=== PATIENT | female | born 1980 | race Asian ===

== ENCOUNTER → 2021-04-11 16:16 | Outpatient (BNVA) | payer BC, SELFPAY | PROVIDERS: Visit Provider Obstetrics & Gynecology | DX: N92.0 Excessive and frequent menstruation with regular cycle (principal); N92.1 Excessive and frequent menstruation with irregular cycle | CPT/HCPCS: 83001; 84146; 84443; 84702; 85025 ==

== ENCOUNTER → 2021-05-12 12:11 | Outpatient (BNVA) | payer BC, SELFPAY | PROVIDERS: PCP Obstetrics & Gynecology; Visit Provider Obstetrics & Gynecology | DX: Z20.822 Contact with and (suspected) exposure to COVID-19 (principal) | CPT/HCPCS: 87635 ==

== ENCOUNTER 2021-05-17 17:28 | Observation (INO) | payer BC, SELFPAY ==
[2021-05-16 08:59] VITALS: BMI 26.6
--- NOTE | 2021-05-16 09:25 | ANES.PREANE2 ---
Pre-Anesthetic Assessment Pre-Anesthetic Assessment: Height/Weight: Height 1.52 m Weight 62 kg Preop Diagnosis: Chronic pelvic pain, menorrhagia Proposed Procedure: Operation Date: 05/17/21 12:50 Proposed Procedures p Total Vaginal Hysterectomy 27410/n92.1/r10.2(Not Applicable) - Holland Carlin MD s Salpingo-Oophorectomy (Vaginal)(Not Applicable) - Holland Carlin MD Familial anesthetic complications: None Was Beta Issac taken within 24 hours: N/A Was Clonidine taken within 24 hours: N/A Social: Social History: No alcohol and No tobacco Exam: Pre-Anes Outpt Exam: alert, oriented x 3, clear to auscultation bilaterally and regular rate & rhythm Airway: Cervical ROM: WNL MP: 2 Dentition: Full CV/HEM: CV/HEM: Anemia Anesthetic Plan: ASA status: 2 Anesthesia: General Risk of > 500 ml blood loss (7ml/kg in children): No PFSH Anesthesia PFSH: Family History Mother Diabetes Hyperlipidemia Hypertension Stroke Brother Thyroid condition Sister Thyroid condition Father Heart disease Denies family history of Colon cancer Ovarian cancer Clotting disorder Breast cancer Anesthesia complication Bleeding disorder Uterine cancer Female Reproductive History: Date of last menstrual period: 05/13/21 Data Anesthesia Cardiac Studies: No Data to Display
[2021-05-16 09:34] LABS: Basophils % 0.8 %; Eosinophils # 0.2 10^3/uL (0.0-0.8); Eosinophils % 4.3 %; Hematocrit 33.5 % (37.0-47.0); Hemoglobin 9.4 g/dL (11.5-15.3); Lymphocytes # 0.7 10^3/uL (0.8-4.8); Mean Corpuscular HGB Conc 28.1 g/dL (30.0-36.0); Mean Corpuscular Hemoglobin 19.5 pg (28.0-34.0); Mean Corpuscular Volume 69.6 fl (81-99); Mean Platelet Volume 8.8 fL (7.4-10.4); Monocytes # 0.6 10^3/uL (0.2-0.9); Monocytes % 11.4 %; Neutrophils # 3.57 10^3/uL (1.8-7.7); Neutrophils % 70.1 %; Nucleated Red Blood Cells % 0 %; Platelet Count 279 10^3/cmm (130-400); Red Blood Count 4.81 10^6/uL (4.1-5.3); Red Cell Distribution Width 17.9 % (12.1-15.1); White Blood Count 5.1 10^3/uL (4.0-10.0)
[2021-05-16 09:39] LABS: OR HCG Qualitative Urine Negative (Negative)
[2021-05-16 10:09] LABS: Alanine Aminotransferase 26 U/L (0-33); Alkaline Phosphatase 62 IU/L (35-105); Anion Gap 17.9 (5-19); Aspartate Amino Transferase 17 U/L (0-32); Blood Urea Nitrogen 8 mg/dL (6-20); Carbon Dioxide 23 mmol/L (22-29); Chloride 99 mmol/L (98-107); Globulin 2.3 g/dL (1.3-4.6); Glomerular Filtration Rate 111.3 mL/min (90-130); Glucose 89 mg/dL (65-115); Osmolality Calculated 280 mOsm/kg (285-295); Potassium 3.9 mmol/L (3.5-5.1); Sodium 136 mmol/L (136-145); Total Bilirubin 0.2 mg/dL (0.15-1.2); Total Protein 7.3 g/dL (6.6-8.7)
[2021-05-16 10:14] LABS: Add Urine Microscopic? YES; Bacteria Urine 2+ /hpf; Bilirubin Urine Neg (Negative); Blood Urine Neg (Negative); Glucose Urine UA Norm (Normal); Ketones Urine Negative (Negative); Leukocyte Esterase Urine Negative (Negative); Mucus Urine 2+ /hpf; Nitrate Urine Negative (Negative); Protein Urine Neg (Negative); Specific Gravity, Urine 1.025 (1.005-1.030); Squamous Epithelial Cell Urine 40-55 /hpf (0-5); Urine Appearance SL Hazy (CLEAR); Urine Color Yellow (Yellow); Urobilinogen Urine Norm (Negative); pH Urine 5 (5-7)
[2021-05-16 10:15] LABS: Add Urine Culture? No
[2021-05-17] VITALS (20 sets, daily range): BP systolic 82–121; BP diastolic 41–81; PULSE 16–112; RESP 14–18; TEMP 36.1–37.2; O2SAT 93–100; BMI 26.5
[2021-05-17] MEDS: scopolamine 1.5 Patch 1 PATCH TRANSDERMA (13:03)
--- NOTE | 2021-05-17 13:05 | P.ANESUD_ITS ---
Pre-Anesthetic Update Pre-Anesthetic Assessment: Date of Surgery/Procedure: 05/17/21 Preop Tanya gnosis: Chronic pelvic pain, menorrhagia Proposed Procedure: Operation Date: 05/17/21 12:50 Proposed Procedures p Total Vaginal Hysterectomy 13185/n92.1/r10.2(Not Applicable) - Holland Carlin MD s Salpingo-Oophorectomy (Vaginal)(Not Applicable) - Holland Carlin MD Last Intake: Intake Last Liquid Date 05/17/21 Last Liquid Time 07:00 Last Solid Date 05/16/21 Last Solid Time 00:00 Labs Last 48hrs: Short CBC 05/16/21 Range/Units 09:10 WBC 5.1 (4.0-10.0) 10^3/ uL Hgb 9.4 L (11.5-15.3) g/dL Hct 33.5 L (37.0-47.0) % MCV 69.6 L (81-99) fl Plt Count 279 (130-400) 10^3/c mm Neut % (Auto) 70.1 % Neut # (Auto) 3.57 (1.8-7.7) 10^3/u L BMP 05/16/21 09:10 Sodium 136 Potassium 3.9 Chloride 99 Carbon Dioxide 23 BUN 8 Creatinine 0.6 Glucose 89 Calcium 9.0 Liver Function 05/16/21 Range/Units 09:10 Total Bilirubin 0.2 (0.15-1.2) mg/dL AST 17 (0-32) U/L ALT 26 (0-33) U/L Alkaline Phosphata se 62 (35-105) IU/L Albumin 5.0 (3.5-5.2) g/dL Urine 05/16/21 Range/Units 09:30 Urine Color Yellow (Yellow) Urine Appearance Sl hazy (CLEAR) Urine pH 5 (5-7) Ur Specific Gravit y 1.025 (1.005-1.030) Urine Protein Neg (Negative) Urine Glucose (UA) Norm (Normal) Urine Ketones Negative (Negative) Urine Nitrate Negative (Negative) Urine Bilirubin Neg (Negative) Ur Leukocyte Marya ase Negative (Negative) Urine RBC None (0-2) /hpf Urine WBC None (0-5) /hpf Blood Bank 05/16/21 09:19 Blood Type B Positive Rho(D) Type Positive Antibody Screen Negative Vitals: Temperature 98.3 F 05/17/21 12:35 Temperature Source Temporal Artery S can 05/17/21 12:35 Pulse Rate 98 05/17/21 12:35 Respiratory Rate 16 05/17/21 12:35 Blood Pressure 112/80 05/17/21 12:35 Blood Pressure Nighat n 90 05/17/21 12:35 Pulse Oximetry 100 05/17/21 12:35 Oxygen Delivery Me thod 05/17/21 12:35 Cardiac Studies: No Data to Display
--- NOTE | 2021-05-17 13:05 | W.PM.OPSUD ---
Surgery/Procedure H&P Update DATE OF PROCEDURE: May 17, 2021 DATE H&P PERFORMED: 05/15/21 H&P UPDATE INFORMATION: I have reviewed H&P completed within last 30 days, I have examined patient prior to procedure and No changes to prior documentation PREOP DIAGNOSIS: Chronic pelvic pain, menorrhagia PLANNED PROCEDURE: Operation Date: 05/17/21 12:50 Proposed Procedures p Total Vaginal Hysterectomy 99383/n92.1/r10.2(Not Applicable) - Holland Carlin MD s Salpingo-Oophorectomy (Vaginal)(Not Applicable) - Holland Carlin MD
[2021-05-17] MEDS: sodium chloride 0.9% 500 ML IV (13:09)
[2021-05-17] MEDS: ceFOXitin 2,000 MG in sodium chloride 0.9% (plus) 50 ML 100 MG IV (13:16)
[2021-05-17] MEDS: estrogens Conjugated Cream 30 gm 1 APPLIC VAGINAL (15:06)
--- NOTE | 2021-05-17 15:23 | P.OP_ITS ---
Operative Report Date of procedure: May 17, 2021 Pre-op Diagnosis: Chronic pelvic pain, menorrhagia, Endometriosis Post-op diagnosis: same Post-op Findings: Extensive cul-de-sac adhesions Procedure Done: Total vaginal hysterectomy Specimens removed/disposition: Uterus Surgeon: Holland Carlin MD Anesthesia: General Estimated blood loss (mL): 500 IV fluids (mL): 1,800 Urine output (mL): 300 Complications: Bleeding, adhesions Condition: stable Disposition: PACU Procedure: After informed consent and risks, benefits, indications and alternatives reviewed with the patient was taken to the operating room. The patient was placed in dorsal lithotomy position prepped, and draped in the usual sterile fashion. The pre-procedure timeout verifying the correct patient, procedure, site and side, could not requirements was performed and acknowledge by the OR team. A Rubio catheter was placed. A Bookwalter vaginal retractor was placed into the vagina in usual manner visualize the cervix. Cervix was grasped with a single tooth tenaculum and circumferentially infiltrated with 2% Xylocaine with epinephrine]. Then cervix was circumferentially incised with bovie and the bladder was dissected off the pubovesical cervical fascia anteriorly with a sponge stick and Metzenbaum scissors. The anterior peritoneal reflection was identified and the anterior cul-de-sac was entered sharply with Metzenbaum scissors. The same procedure was performed posteriorly and a posterior colpotomy was made through the posterior cul-de-sac space with great difficulty due to extensive adhesions and finnaly after careful lysis of adhesions the posterior blade of the Bookwalter vaginal retractor was advanced posteriorly into the cul-de-sac. At this time, the left and right uterosacral ligaments were isolated and ligated with 0 Vicryl. The Enseal device was placed over the uterosacral ligaments on either side and was then used in a serial fashion up through the cardinal ligaments bilaterally cross-clamped, cut, and sealed with the Enseal device. Finally, the uterine arteries were cross-clamped, cut, sealed and ligated with the Enseal device. Hemostasis was assured. The broad ligaments were then serially clamped, sealed and cut with the Enseal device on both sides. Excellent hemostasis was visualized. Both cornua were clamped, sealed and cut with the Enseal device after care disection due to adhesions. Then the pedicles were then suture liga leny with excellent hemostasis. The uterus was excised and submitted for pathologic evaluation. Due to adhesions the ovaries could not be identified and planned oophorectomy was postpone for safety and to avoid further bleeding. The peritoneum was then closed in a pursestring fashion with 0 Vicryl suture. The vaginal cuff angles were closed with [id number] #0 Vicryl suture on both sides and transfixed with the ipsilateral cardinal and uterosacral ligaments. The remainder of the vaginal cuff was closed with #0 Vicryl in a running locked fashion. At this time, instruments were removed from the vagina at hemostasis assured. Then the Rubio catheter was removed and cystoscope was inserted. The bladder was filled with sterile water. Complete evaluation of the bladder mucosa was perfo rmed noting no lacerations, dimpling, tears, bleeding of the mucosa or muscular layers. Both ureteral orifices were identified. Prompt excretion of urine from both ureteral orifices was noted. Cystoscope was withdrawn. Rubio catheter was then placed yielding clear neris urine. A vaginal packing with Premarin cream was placed and the patient was taken out of dorsal lithotomy position and awake brisa from the general anesthesia. The patient tolerated the procedure well and was taken to the PACU recovery room in a stable condition. Sponge, lap, needle and instruments counts were correct x3.
--- NOTE | 2021-05-17 15:37 | ANE.PACU2 ---
Inpatient post-anesthesia follow up: Airway intact: Yes Vital signs: Temperature 98.3 F Pulse Rate 98 Respiratory Rate 16 Blood Pressure 112/80 Pulse Oximetry 100 Oxygen Delivery Me thod Room Air Oxygen Flow Rate Fraction of Inspir ed Oxygen Hydration adequate: Yes Nausea and vomiting: No Pain level: 2 Mental status: Baseline
[2021-05-17] MEDS: fentaNYL 50 mcg/mL INJ 2mL IVP (15:40)
[2021-05-17 17:27] LABS: Glucose Point of Care 115 mg/dL (70-110)
[2021-05-17] MEDS: docusate sodium 100 mg Capsule PO (17:57)
[2021-05-17] MEDS: ketorolac 30 mg/mL INJ IVP (17:57)
[2021-05-17] MEDS: dextrose 5%-lactated ringers 1,000 ML 125 ML IV (17:58)
[2021-05-17 18:01] LABS: Basophils % 0.2 %; Eosinophils % 0.2 %; Lymphocytes # 0.5 10^3/uL (0.8-4.8); Lymphocytes % 9.2 %; Mean Corpuscular Hemoglobin 19.2 pg (28.0-34.0); Mean Corpuscular Volume 71.2 fl (81-99); Mean Platelet Volume 9.1 fL (7.4-10.4); Monocytes # 0.3 10^3/uL (0.2-0.9); Monocytes % 5.2 %; Neutrophils # 4.78 10^3/uL (1.8-7.7); Neutrophils % 84.8 %; Nucleated Red Blood Cells % 0 %; Platelet Count 196 10^3/cmm (130-400); Red Blood Count 3.23 10^6/uL (4.1-5.3); Red Cell Distribution Width 18.1 % (12.1-15.1); White Blood Count 5.6 10^3/uL (4.0-10.0)
[2021-05-17 18:16] LABS: Hemoglobin 6.2 g/dL (11.5-15.3)
[2021-05-17] MEDS: HYDROcodone-acetaminophen 5-325 mg Tablet PO (20:56)
[2021-05-18] VITALS (11 sets, daily range): BP systolic 70–89; BP diastolic 38–55; PULSE 73–97; RESP 16–20; TEMP 36.7–37.2; O2SAT 95–98
[2021-05-18] MEDS: ketorolac 30 mg/mL INJ IVP ×2 (00:42→05:09)
--- NOTE | 2021-05-18 02:28 | PC.NURSE ---
1945 awake in bed. golf ball size dried area to sheet from vaginal bleeding. No acute bleeding noted. Rubio patent urine changing from blue dye color to clear yellow.
--- NOTE | 2021-05-18 04:21 | PC.NURSE ---
1950 Lab calls to report PRBC ready for tow picker.
--- NOTE | 2021-05-18 04:22 | PC.NURSE ---
2015 Starting first bag of 2 units of PRBC. See TAR for further info.
--- NOTE | 2021-05-18 04:23 | PC.NURSE ---
2044 Dr Carlin calls to [facility] on pt status. Reported low BPs, pt asymptomatic. Will continued to monitor. No new orders.
--- NOTE | 2021-05-18 04:26 | PC.NURSE ---
2100 Bridgett given to pt per her request. A/o x 4. No distress. Scant amt of pink bleeding noted to vaginal packing. Ruboi in place draining yellow urine. Passing flatus. Bowel sounds noted x 4. Instructed pt to turn cough deep breathe. Voices understanding.
--- NOTE | 2021-05-18 04:28 | PC.NURSE ---
2200 BP continues to be low. Pt reports she has been running low since she has been low on blood the past few weeks. She reports mild dizziness. No other symptoms.
--- NOTE | 2021-05-18 04:29 | PC.NURSE ---
2320 First unit PRBC completed. No reaction noted. Lungs CTA. Tolerated well. Sat up in bed. Due to low BP, did not have pt move to chair as activity states.
--- NOTE | 2021-05-18 04:30 | PC.NURSE ---
0020 2nd unit PRBC started. See TAR for further info.
--- NOTE | 2021-05-18 04:31 | PC.NURSE ---
0045 Pt given a cup of chicken broth and kenzie as requested. Tolerates well. No n/v. Fole draining clear yellow urine. No vaginal bleeding noted. Lungs CTA.
--- NOTE | 2021-05-18 04:32 | PC.NURSE ---
0200 Easily awakens for vs. BP cont to be 80s systolic. No symptoms. Lungs CTA. Bowels sounds x 4 quad. No vaginal bleeding.
--- NOTE | 2021-05-18 04:33 | PC.NURSE ---
0315 2nd PRBC completed. Tolerates well. No s/s of reaction. Lungs CTA. Denies requests.
--- NOTE | 2021-05-18 05:24 | PC.NURSE ---
Pt sleeping. Easily awakens. BP 86/44 manually, HR 74. No distress. Out put 150cc clear yellow urine. Passes flatus.
[2021-05-18 05:46] LABS: Basophils % 0.1 %; Hematocrit 27.9 % (37.0-47.0); Hemoglobin 8.4 g/dL (11.5-15.3); Lymphocytes # 1.3 10^3/uL (0.8-4.8); Lymphocytes % 15.2 %; Mean Corpuscular HGB Conc 30.1 g/dL (30.0-36.0); Mean Corpuscular Hemoglobin 22.9 pg (28.0-34.0); Mean Platelet Volume 9.2 fL (7.4-10.4); Monocytes # 0.8 10^3/uL (0.2-0.9); Monocytes % 9.3 %; Neutrophils # 6.53 10^3/uL (1.8-7.7); Neutrophils % 75.1 %; Nucleated Red Blood Cells % 0 %; Platelet Count 161 10^3/cmm (130-400); Red Blood Count 3.67 10^6/uL (4.1-5.3); Red Cell Distribution Width 20.5 % (12.1-15.1); White Blood Count 8.7 10^3/uL (4.0-10.0)
[2021-05-18 06:54] LABS: Glucose Point of Care 130 mg/dL (70-110)
--- NOTE | 2021-05-18 08:07 | PC.NURSE ---
on rounds this morning patients blood pressure was 70/[address] Carlin notified who stated to get orthostatic blood pressure and walk patient. laying bp was 76/42, sitting 81/53, standing 89/56. patient walked 75ft in the hallway then back to her room. blood pressure once back in bed was 87/57. Dr. Carlin stated he would be up soon to see patient. no further orders.
[2021-05-18] MEDS: dextrose 5%-lactated ringers 1,000 ML 125 ML IV ×2 (09:10→22:00)
[2021-05-18] MEDS: docusate sodium 100 mg Capsule PO (09:11)
[2021-05-18] MEDS: HYDROcodone-acetaminophen 5-325 mg Tablet PO ×2 (09:11→19:49)
--- NOTE | 2021-05-18 09:23 | PC.NURSE ---
Vaginal packing removed at 0900. Patient tolerated well. Rubio removed at this time as well. Patient instructed to get up and walk when her pain medication takes effect.
[2021-05-18 12:31] LABS: Hematocrit 26.7 % (37.0-47.0); Hemoglobin 8.2 g/dL (11.5-15.3)
[2021-05-18] MEDS: ibuprofen 800 mg tablet PO ×2 (15:29→22:56)
--- NOTE | 2021-05-18 17:12 | PM.PN ---
Subjective Subjective: Interval history: 41 years old postoperative day 1 status post total vaginal hysterectomy. Refers some pain Vitals/I&O/Wt Last Vital Signs Temp 98.5 F 05/18/21 15:26 Pulse 92 05/18/21 15:26 Resp 16 05/18/21 15:26 BP 78/49 05/18/21 15:26 Pulse Ox 98 05/18/21 15:26 05/18/21 05/18/21 05/18/21 06:59 14:59 22:59 Intake Total 1890 / 2440 360 / 360 Output Total 475 / 1225 100 / 100 Balance 1415 / 1215 260 / 260 Weight last 48 hrs Weight 61.689 kg Physical Exam Narrative: EXAM NARRATIVE: GA: Alert and oriented ?3. HEENT: WNL. Heart: Regular rate and rhythm. Lungs: Clear to auscultation bilaterally. Abdomen: Bowel sounds present, nontender, minimal tenderness, incision clean and dry, no redness, pain or edema. ADMINISTRATIVE VOLUNTEER: No bleeding. Extremities: No edema, no cyanosis, no calves pain. Urinary Catheter Management^: Rubio: Cath Placed During This Visit: yes, but has since been removed by the nurse Reason for Continuing Indwelling Catheter: Decision to DC Catheter Urinary Catheter Date of Insertion: 05/17/21 Urinary Catheter Time of Insertion: 12:42 Date Urinary Catheter Removed: 05/18/21 Time Urinary Catheter Discontinued: 08:30 Data : 05/18/21 12:15 05/16/21 09:10 A&P Assessment and plan (1) Status post vaginal hysterectomy: Mrs. Soriano 41-year-old female status post vaginal hysterectomy complicated by bleeding and adhesions. She is postoperative day 1, afebrile and hemodynamically stable. She was given total units of blood postoperatively. tolerating diet well. Pain under control. Ambulating without difficulty. Patient was counseled regarding ovaries could not be removed due to extensive adhesions and bleeding. We will continue postop observation for an additional 24 hours. Status: Acute Attestations Medical Necessity Statement*: In my professional opinion per admitting diagnosis Coding Level of Care Code Acute Painter Bottom for Deangelo Quintero Diagnoses Status post vaginal hysterectomy Z90.710
[2021-05-18] MEDS: simethicone 80 mg Chew PO (20:04)
[2021-05-18 22:00] LABS: Glucose Point of Care 121 mg/dL (70-110)
[2021-05-19] VITALS: BP 101/66; PULSE 105; RESP 18; TEMP 36.8; O2SAT 91
[2021-05-19] MEDS: HYDROcodone-acetaminophen 5-325 mg Tablet PO (03:35)
[2021-05-19 04:04] VITALS: BP 88/54; PULSE 85; RESP 16; TEMP 37.4; O2SAT 95
[2021-05-19] MEDS: dextrose 5%-lactated ringers 1,000 ML 125 ML IV ×2 (05:38→13:18)
[2021-05-19 06:48] LABS: Glucose Point of Care 111 mg/dL (70-110)
[2021-05-19 07:23] VITALS: BP 100/53; PULSE 98; RESP 16; TEMP 37.1; O2SAT 95
[2021-05-19] MEDS: ibuprofen 800 mg tablet PO ×2 (11:09→15:45)
[2021-05-19] MEDS: docusate sodium 100 mg Capsule PO (11:09)
[2021-05-19 11:45] LABS: Hematocrit 30.6 % (37.0-47.0); Hemoglobin 9.2 g/dL (11.5-15.3)
[2021-05-19 11:47] VITALS: BP 105/47; PULSE 105; RESP 16; TEMP 36.7; O2SAT 97
--- NOTE | 2021-05-19 13:28 | PM.PN ---
Subjective Subjective: Interval history: Mrs. Hightower 41-year-old female status post total vaginal hysterectomy postoperative day 2. Refers having some discomfort. Vitals/I&O/Wt Last Vital Signs Temp 98.1 F 05/19/21 11:47 Pulse 105 H 05/19/21 11:47 Resp 16 05/19/21 11:47 BP 105/47 05/19/21 11:47 Pulse Ox 97 05/19/21 11:47 05/18/21 05/19/21 05/19/21 22:59 06:59 14:59 Intake Total 1720 / 2080 1074.167 / 3154.167 1078.333 / 1078.333 Output Total 250 / 350 Balance 1470 / 1730 1074.167 / 2804.167 1078.333 / 1078.333 Weight last 48 hrs Weight 61.689 kg Physical Exam Narrative: EXAM NARRATIVE: GA: Alert and oriented ?3. HEENT: WNL. Heart: Regular rate and rhythm. Lungs: Clear to auscultation bilaterally. Abdomen: Bowel sounds present, minimal tenderness FREELANCE TRANSLATOR: No bleeding. Extremities: No edema, no cyanosis, no calves pain. Urinary Catheter Management^: Rubio: Cath Placed During This Visit: yes, but has since been removed by the nurse Reason for Continuing Indwelling Catheter: Decision to DC Catheter Urinary Catheter Date of Insertion: 05/17/21 Urinary Catheter Time of Insertion: 12:42 Date Urinary Catheter Removed: 05/18/21 Time Urinary Catheter Discontinued: 08:30 Data : 05/19/21 11:37 05/16/21 09:10 A&P Assessment and plan (1) Status post vaginal hysterectomy: Mrs. Soriano 41-year-old female status post vaginal hysterectomy complicated by bleeding and adhesions. She is postoperative day 2, afebrile and hemodynamically stable. She received 2 units of blood on postoperatively. Referred tolerating diet well. Refers passing flatus and had a bowel movement this morning. Verbal order for H&H this morning was not carried out. Ordered stat H&H. Hemoglobin hematocrit stable. Status: Acute Attestations Medical Necessity Statement*: In my professional opinion per admitting diagnosis. Coding Level of Care Code Acute Developmental Specialist for Deangelo Quintero Diagnoses Status post vaginal hysterectomy Z90.710
--- NOTE | 2021-05-19 14:03 | PC.CHAP ---
Pastoral Care Encounter/Spiritual Assessment Type of Contact [] Declined chief school finance officer visit [] Patient/Family/Request visit [] Outpatient visit [] Follow-up visit [] Physician referral [] Code/Alert [xx] Routine visit [] Staff referral [] Actively dying [] Patient sleeping [] Family support [] [] Out of room [] Palliative care [] [] Receiving care in room [] Pre-surgical visit [] Trauma [] Long length of stay [] ICU visit [] Other: Relational/Emotional Strength [xx] Patient feels connected with others/family/visitors/staff [] Distress [] Loneliness/isolation [] Abandonment Spirituality of Patient [xx] Person of Ольга [] Attends Latter Day of their [place]льга [xx] Believes in Prayer [] Reads Bible or Christianity materials [] There are Spiritual issues to be addressed Oven Attendant Interventions [xx] Prayer [xx] Active listening [xx] Non-anxious presence [] Spiritual/emotional support [] Crisis/trauma care [] Spiritual counseling [] Bereavement support [] Provided bereavement packet [xx] Provided Bible/devotional materials [] Provided toy/stuffed animal, coloring book to patient or family member [] Provided Communion [] Anointing/Levering [] Salvation [xx] Completed spiritual assessment [] Other: Impact on Illness or Injury [] Angry [] Fearful [] Anxious [] Often cries [] Exhaustion [] Unable to work [] Unable to attend evangelical [] Unable to walk/stand [] Unable to read [] Unable to drive [xx] Unable to eat/drink [] Unable to sleep [] Unable to be with family [] Patient intubated [] Other: Summary Patient is stilll nauseated and not feeling well. She wanted prayer. She stated her spouse should be coming up to visit today but she doesn't feel like talking to him. She wants him to come, though. Time spent with patient 5 minutes
[2021-05-19 16:00] VITALS: BP 101/71; PULSE 88; RESP 18; TEMP 36.8; O2SAT 94
--- NOTE | 2021-05-19 17:39 | P.DS_ITS ---
Discharge Providers MOLD YARD CRANE OPERATOR Date of Admission: 05/17/21 17:28 Date of Discharge: 05/19/21 Attending Provider at Admission: Holland Carlin MD Attending Provider at Discharge: Holland Cariln MD Primary Care Provider: Holland Carlin MD Diagnoses at Discharge Discharge Diagnosis (1) Status post vaginal hysterectomy: Status: Acute Reason for Visit Reason for Visit: menorrhagia, pelvic pain n92.1/r10.2 Hospital Course Hospital Course Mrs. Greer 41-year-old female with a history of chronic pelvic pain, dysmenorrhea and dyspareunia previously diagnosed with endometriosis. Admitted for a schedule total vaginal hysterectomy. The total vaginal hysterectomy was performed complicated by complexity due to adhesions and bleeding. Postoperatively if she was transfused 2 units of packed red blood cells. She is postoperative day 2 afebrile and hemodynamically stable. Tolerating diet well. Ambulating without difficulty. Passing flatus and had a bowel movement. Physical Exam Narrative: EXAM NARRATIVE: GA: Alert and oriented ?3. HEENT: WNL. Heart: Regular rate and rhythm. Lungs: Clear to auscultation bilaterally. Abdomen: Bowel sounds present, minimal tenderness. BODY COVERER: No bleeding. Extremities: No edema, no cyanosis, no calves pain. Urinary Catheter Management^: Rubio: Cath Placed During This Visit: yes, but has since been removed by the nurse Reason for Continuing Indwelling Catheter: Decision to DC Catheter Urinary Catheter Date of Insertion: 05/17/21 Urinary Catheter Time of Insertion: 12:42 Date Urinary Catheter Removed: 05/18/21 Time Urinary Catheter Discontinued: 08:30 History History History 0 Term 0 Miscarriages/Ectopic Living Children Discharge Data Data Completed and Pending: Pending at discharge Category Date Time Status Hemoglobin and He matocrit AM LABS Lab 05/20/21 04:00 Ordered Pathology: Surgic al [PTH] Routine Pth 05/17/21 15:29 Received Labs from last 24 hours 05/19/21 05/19/21 05/18/21 11:37 06:24 21:19 Hgb 9.2 L Hct 30.6 L POC Glucose 111 H 121 H Vitals: Last Vital Signs Temp 98.3 F 05/19/21 16:00 Pulse 88 05/19/21 16:00 Resp 18 05/19/21 16:00 BP 101/71 05/19/21 16:00 Pulse Ox 94 05/19/21 16:00 Discharge Plan Discharge Patient Disposition: Home Condition: Stable Prescriptions: New acetaminophen 325 mg capsule 325 mg PO Q4H PRN (Reason: fever or postoperative pain) Qty: 60 RF: 0 ibuprofen 800 mg tablet 800 mg PO TID PRN (Reason: pain) Qty: 60 RF: 0 hydrocodone-acetaminophen 5-325 mg tablet 1 tab PO Q4H PRN (Reason: pain) Qty: 30 RF: 0 Iron (ferrous sulfate) 325 mg (65 mg iron) tablet 325 mg PO BID Qty: 30 RF: 0 Colace 100 mg capsule 100 mg PO BID Qty: 30 RF: 0 Discharge Orders: Discharge Order (Routine); Ordered 05/19/21 Ordered By: Holland Carlin Referrals: Holland Carlin MD [Primary Care Provider] - 2 weeks Discharge Diet: Soft Mechanical Discharge Activity: Limit activity as instructed Patient Instructions: Endometriosis (GEN), Pelvic Pain in Women (GEN), Hysterectomy (GEN), Vaginal Hysterectomy (DC), Opioid Safety Activity Restrictions/Additional Instructions: 1. Please call [facility] on next working day to make your post-operative appointment in 2 weeks. 2. Please stay home until you come back to the clinic on first post-operative check up. 3. Please follow instructions on your medications CAREFULLY. 4. If you have abdominal incision, do not cover it unless dressing is necessary because of drainage. OK to shower, but avoid bath. Leave steri-strips until they fall off. If they are still on one week after surgery, you may remove them. 5. If you had vaginal surgery or vaginal repair, Dr. Carlin may instruct you to take SITZ bath. 6. Yellow, blood tinged odorous vaginal discharge is usually normal after hysterectomy or vaginal surgeries. 7. No sexual intercourse, tampons, or douches until you are completely released from the post-operative care. 8. Avoid constipation by eating right and maybe using some Metamucil or Milk of Magnesia. 9. All prescription refills are given during the working hours. Please do no wait till it runs out. Call the clinic at [phone] before your medication runs out. The clinic will get in touch with your doctor to prescribe medications if necessary. 10. Please remain within 40 mile radius from our hospital because emergencies do happen now and then during the post-operative period. 11. If you have stairs at home, take one step at a time slowly and minimize the number of trips. It helps to stay in one floor for the next few days. No lifting except what you can lift by one hand until you are released from the post-operative care. 12. Driving is discouraged until you are well healed. It may be 3-4 weeks before you feel strong enough to drive. You should be able to turn and look through the rear window without pain and you should be able to push the brake pedal very hard without pain before you drive. No fast rules, but SAFETY should be your primary concern. DO NOT drive if you are on sedating medications such as narcotics. 13. Call the clinic (during working hours) to make urgent appointment or go to the Emergency room, if any of the following occurs: i. Vaginal bleeding becomes heavy, more than a period. ii. Incision becomes red and sore, or drains pus. iii. Your temperature is over 100.4 or you have chill. iv. IV site becomes red and swollen (a little ``knot?? is usually OK) v. Persistent nausea and vomiting vi. Persistent constipation or diarrhea vii. Rash or allergic reaction to medications. Discharge Attestations MOLD YARD CRANE OPERATOR Time Spent in Discharge Care*: greater than 30 min Coding Level of Care Code Acute Rn Hyperbaric for Deangelo Quintero Diagnoses Status post vaginal hysterectomy Z90.710
--- NOTE | 2021-05-19 18:22 | PC.NURSE ---
DISCHARGE PAPERWORK GONE OVER WITH PT. ALL QUESTIONS ANSWERED. IV REMOVED. CATHETER TIP INTACT. PT TOLERATED WELL. PT SAFELY WHEELED OUT BY THIS NURSE .
[2021-05-19 18:54] VITALS: BP 101/71; PULSE 88; RESP 18; TEMP 36.8; O2SAT 94
== END 2021-05-19 18:55 | disposition home or self-care (01) ==
LOC: MEDSURG 05-18 10:16
PROVIDERS: Admitting Provider Obstetrics & Gynecology; PCP Obstetrics & Gynecology; Visit Provider Obstetrics & Gynecology
PROC: (CPT 58260; principal; 2021-05-17 12:40)
DX: N92.0 Excessive and frequent menstruation with regular cycle (principal); G89.29 Other chronic pain; R10.2 Pelvic and perineal pain; N80.9 Endometriosis, unspecified; K66.0 Peritoneal adhesions (postprocedural) (postinfection); Z82.49 Family history of ischemic heart disease and other diseases of the circulatory system; Z83.3 Family history of diabetes mellitus; Z82.3 Family history of stroke
CPT/HCPCS: 58260; 36415; 36416; 36430; 80053; 81001; 81025; 82962; 84703; 85014; 85018; 85025; 86850; 86900; 86920; 88307; 96365; G0378; J0694; J1100; J1170; J1200; J1885; J2370; J2405; J2704; J3010; J3490; J7040; P9016; P9041

== ENCOUNTER 2022-01-17 14:16 | Observation (INO) | payer BC, SELFPAY ==
[2022-01-15 13:07] VITALS: BMI 27.3
--- NOTE | 2022-01-15 13:35 | P.ANESASSM_ITS ---
Pre-Anesthetic Assessment Height/Weight: Height 1.52 m Weight 63.503 kg Preop Diagnosis: Endometriosis adhesions Operation Date: 01/17/22 10:05 Proposed Procedures p Laparoscopic bilateral Oophorectomy 45321,N80.9,R10.2(Bilateral) - Holland Carlin MD Familial anesthetic complications: None Was Beta Issac taken within 24 hours: N/A Was Clonidine taken within 24 hours: N/A Social No alcohol and No tobacco Exam alert, oriented x 3, clear to auscultation bilaterally and regular rate & rhythm Airway Mallampati: Class II Dentition: full Musc/skel endometriosis Anesthetic Plan ASA status: 2 Anesthesia: General Risk of > 500 ml blood loss (7ml/kg in children): No Medications/Allergies Home Medications Medication Instructions Recorded Confirmed Last Taken Type No Known Home Medications 01/15/22 01/15/22 Unknown History Allergies Allergy/AdvReac Type Severity Reaction Status Date / Time oxycodone Allergy Severe palpitation Verified 01/15/22 10:00 s [facility] Anesthesia Family History Mother Diabetes Hyperlipidemia Hypertension Stroke Brother Thyroid condition Sister Thyroid condition Father Heart disease Denies family history of Colon cancer Ovarian cancer Clotting disorder Breast cancer Anesthesia complication Bleeding disorder Uterine cancer Social History Smoking and tobacco status: never smoked Female Reproductive History Date of last menstrual period: 05/13/21 Data Anesthesia : 01/15/22 13:18 01/15/22 13:18 Cardiac Studies: No Data to Display
[2022-01-15 13:38] LABS: Basophils % 0.7 %; Eosinophils # 0.2 10^3/uL (0.0-0.8); Eosinophils % 5.1 %; Hematocrit 42.5 % (37.0-47.0); Hemoglobin 14.7 g/dL (11.5-15.3); Lymphocytes # 1.9 10^3/uL (0.8-4.8); Lymphocytes % 43.8 %; Mean Corpuscular HGB Conc 34.6 g/dL (30.0-36.0); Mean Corpuscular Hemoglobin 29.8 pg (28.0-34.0); Mean Corpuscular Volume 86.2 fl (81-99); Mean Platelet Volume 8.6 fL (7.4-10.4); Monocytes # 0.4 10^3/uL (0.2-0.9); Monocytes % 9.1 %; Neutrophils # 1.76 10^3/uL (1.8-7.7); Neutrophils % 41.1 %; Nucleated Red Blood Cells % 0 %; Platelet Count 240 10^3/cmm (130-400); Red Blood Count 4.93 10^6/uL (4.1-5.3); Red Cell Distribution Width 12.4 % (12.1-15.1); White Blood Count 4.3 10^3/uL (4.0-10.0)
[2022-01-15 13:44] LABS: Add Urine Culture? No; Add Urine Microscopic? YES; Bacteria Urine 1+ /hpf; Bilirubin Urine Neg (Negative); Blood Urine 2+ (Negative); Glucose Urine UA Norm (Normal); Ketones Urine 1+ (Negative); Leukocyte Esterase Urine Negative (Negative); Nitrate Urine Negative (Negative); Protein Urine Neg (Negative); RBC Urine 0-4 /hpf (0-2); Urine Appearance Clear (CLEAR); Urine Color Yellow (Yellow); Urobilinogen Urine Norm (Negative); WBC Urine 0-4 /hpf (0-5); pH Urine 5 (5-7)
[2022-01-15 13:58] LABS: Alanine Aminotransferase 33 U/L (0-33); Albumin Level 4.6 g/dL (3.5-5.2); Alkaline Phosphatase 53 U/L (35-105); Anion Gap 15.5 (5-19); Aspartate Amino Transferase 21 U/L (0-32); Blood Urea Nitrogen 12 mg/dL (6-20); Calcium 9.1 mg/dL (8.5-10.5); Carbon Dioxide 25 mmol/L (22-29); Chloride 104 mmol/L (98-107); Globulin 2.5 g/dL (1.3-4.6); Glomerular Filtration Rate 79.9 mL/min (90-130); Glucose 109 mg/dL (65-115); Osmolality Calculated 292 mOsm/kg (285-295); Potassium 3.5 mmol/L (3.5-5.1); Sodium 141 mmol/L (136-145); Total Bilirubin 0.4 mg/dL (0.15-1.2); Total Protein 7.1 g/dL (6.6-8.7)
[2022-01-15 14:10] LABS: HIV 1 & 2 Antibody Non-Reactive (Non-Reactiv); HIV 1 & 2 Antigen Non-Reactive (Non-Reactiv)
[2022-01-17] VITALS (19 sets, daily range): BP systolic 80–110; BP diastolic 44–82; PULSE 70–106; RESP 15–20; TEMP 36.4–36.9; O2SAT 93–100
--- NOTE | 2022-01-17 08:46 | W.PM.OPSUD ---
Surgery/Procedure H&P Update DATE OF PROCEDURE: January 17, 2022 DATE H&P PERFORMED: 01/15/22 H&P UPDATE INFORMATION: I have reviewed H&P completed within last 30 days, I have examined patient prior to procedure and No changes to prior documentation PREOP DIAGNOSIS: Endometriosis adhesions PLANNED PROCEDURE: Operation Date: 01/17/22 09:45 Proposed Procedures p Laparoscopic bilateral Oophorectomy 40477,N80.9,R10.2(Bilateral) - Holland Carlin MD
[2022-01-17] MEDS: scopolamine 1.5 Patch 1 PATCH TRANSDERMA (09:40)
[2022-01-17] MEDS: sodium chloride 0.9% 1,000 ML 30 ML IV (09:41)
--- NOTE | 2022-01-17 09:51 | P.ANESUD_ITS ---
Pre-Anesthetic Update Pre-Anesthetic Assessment: Date of Surgery/Procedure: 01/17/22 Preop Tanya gnosis: Endometriosis adhesions Proposed Procedure: Operation Date: 01/17/22 09:45 Proposed Procedures p Laparoscopic bilateral Oophorectomy 98031,N80.9,R10.2(Bilateral) - Holland Carlin MD Any changes to Pre-Anesthetic Assessment?: No Last Intake: Intake Last Liquid Date 01/16/22 Last Liquid Time 23:30 Last Solid Date 01/16/22 Last Solid Time 23:30 Labs Last 48hrs: Short CBC 01/15/22 Range/Units 13:18 WBC 4.3 (4.0-10.0) 10^3/ uL Hgb 14.7 (11.5-15.3) g/dL Hct 42.5 (37.0-47.0) % MCV 86.2 (81-99) fl Plt Count 240 (130-400) 10^3/c mm Neut % (Auto) 41.1 % Neut # (Auto) 1.76 L (1.8-7.7) 10^3/u L BMP 01/15/22 13:18 Sodium 141 Potassium 3.5 Chloride 104 Carbon Dioxide 25 BUN 12 Creatinine 0.8 Glucose 109 Calcium 9.1 Liver Function 01/15/22 Range/Units 13:18 Total Bilirubin 0.4 (0.15-1.2) mg/dL AST 21 (0-32) U/L ALT 33 (0-33) U/L Alkaline Phosphata se 53 (35-105) U/L Albumin 4.6 (3.5-5.2) g/dL Urine 01/15/22 Range/Units Unknown Urine Color Yellow (Yellow) Urine Appearance Clear (CLEAR) Urine pH 5 (5-7) Ur Specific Gravit y 1.020 (1.005-1.030) Urine Protein Neg (Negative) Urine Glucose (UA) Norm (Normal) Urine Ketones 1+ H (Negative) Urine Nitrate Negative (Negative) Urine Bilirubin Neg (Negative) Ur Leukocyte Marya ase Negative (Negative) Urine RBC 0-4 H (0-2) /hpf Urine WBC 0-4 H (0-5) /hpf Blood Bank 01/15/22 13:18 Blood Type B Positive Rho(D) Type Positive Antibody Screen Negative Vitals: Temperature 97.7 F 01/17/22 08:46 Temperature Source Temporal Artery S can 01/17/22 08:46 Pulse Rate 75 01/17/22 08:46 Pulse Rhythm 01/17/22 08:49 Pulse Strength 3+ Normal 01/17/22 08:49 Respiratory Rate 16 01/17/22 08:46 Blood Pressure 108/77 01/17/22 08:46 Blood Pressure Nighat n 87 01/17/22 08:46 Pulse Oximetry 99 01/17/22 08:46 Oxygen Delivery Me thod 01/17/22 08:49 Exam: Pre-Anes Outpt Exam: alert, oriented x 3, clear to auscultation bilaterally and regular rate & rhythm Cardiac Studies: No Data to Display
--- NOTE | 2022-01-17 10:19 | SUR.PREOP ---
10:15 500 ml NS BOLUS INFUSED.
[2022-01-17] MEDS: ceFAZolin 2,000 MG in sodium chloride 0.9% (plus) 50 ML 100 MG IV (10:56)
--- NOTE | 2022-01-17 13:21 | PM.OP ---
Operative Report Date of procedure: January 17, 2022 Pre-op diagnosis: Preop Diagnosis Endometriosis adhesions Post-op diagnosis: Endometriosis. Multiple pelvic adhesions. Procedure done: Diagnostic laparoscopy. Lysis of adhesions. Laparoscopic bilateral oophorectomy Surgeon: Holland Carlin MD Estimated blood loss (mL): 100 IV fluids (mL): 800 Urine output (mL): 300 Brief History: Mrs. Narvaez 41-year-old female G0, P0 with a longstanding history of chronic pelvic pain diagnosed with severe endometriosis for which she had a vaginal hysterectomy. Treated with Orilissa but the patient continues with pelvic pain and decided to have bilateral oophorectomy. Procedure: After informed consent, the patient was taken to the operating room where general anesthesia was administered. Pre-Procedure Time-Out verifying the correct patient identity, correct procedure verified with consent, correct site and side, correct patient position, availability of correct implants and any special equipment or requirements was performed and acknowledge by the OR team. She was placed in the dorsal lithotomy position and prepped and draped in sterile fashion. The patient was examined under anesthesia and found to have a normal uterus with normal adnexa. A Rubio catheter was placed in the bladder. A sponge stick was placed in the vagina. Then attention was brought to abdomen after changing gloves. The base of the umbilicus was grasped with an Allis clamp and with 2 towel clamp bilaterally tenting up the umbilicus an intraumbilical incision was made with a scalpel. While tenting up on the abdomen, a Verres needle with sleeve was admitted into the intra-abdominal cavity. A saline drop test was performed and noted to be within normal limits. Pneumoperitoneum was attained with 4 liters of carbon dioxide. The gas was seen to flow freely with normal resistance, so the CO2 gas was advanced to a higher setting. The abdomen was insufflated to an adequate distension. Once an adequate distention was reached, the Verres needle was removed. Then a 5 mm Optiview trocar and cannula were inserted under direct visualization without complications. Trocars were removed and the laparoscope was inserted. At this time, a second incision was made 3 cm above the symphysis pubis, and a 5 mm trocar and sleeve were admitted into the abdomen under direct, laparoscopic visualization without complication. A 5 mm blunt probe was advanced through the second trocar sleeve, and light manipulation of ovaries and uterus to assess the pelvis and posterior aspects was performed. The survey showed multiple pelvic adhesions bearing both ovaries. A third incision was made in the left lower quadrant and the third trocar was inserted into the abdomen under direct visualization. Also an incision was made in the right lower quadrant and a 5mm trocar was inserted under direct visualization without complcations . Examination of the pelvis revealed findings of multiple adhesions in pelvis involving boyh ovaries. At this time, both ovaries could not be identified due to adhesions. Attention was turned to the right side and adhesions were carefully lysed with blunt and sharp dissection. The right ovary which was mobilized out of the pelvis grasped with bobcock and the infundibulopelvic ligament was clamped, sealed and cut with the enseal device. At this point, the area was dissected initially using hydrodissection and using blunt dissection. Suction was used to drain fluid in the pelvic area. The right ovary was placed in the anterior cul-de-sac. The ovarian bed was then irrigated and dried. There was slight oozing noted and obtained hemostasis using electrocautery. The pelvis was then irrigated, and once hemostasis was assured, the Endo Catch bag was placed through the 10 mm port and the cyst wall components as well as the right ovary was placed in the Endo Catch bag and removed through the 10 mm incision without difficulty. The same rocedure was performed for the left ovary. At this time, the pelvis was again copiously irrigated and dried. Hemostasis was assured and all instruments were removed under visualization. The umbilical incision was closed using 2 interrupted stitches of 2-0 Vicryl sutures and the skin was closed using interrupted stitches of 4-0 Monocryl suture. Dermabond was placed after closure with 4-0 suture in the lateral ports. All instruments were removed. The sponge stick was removed from the vagina, and excellent hemostasis was noted. The patient tolerated the procedure well, and sponge, lap and needle count were correct times two. The patient taken to the recovery room in good condition.
[2022-01-17] MEDS: fentaNYL 50 mcg/mL INJ 2mL IVP (14:19)
--- NOTE | 2022-01-17 15:11 | ANE.PACU2 ---
Inpatient post-anesthesia follow up: Airway intact: Yes Vital signs: Temperature 97.5 F Pulse Rate 95 Respiratory Rate 15 Blood Pressure 107/67 Pulse Oximetry 94 Oxygen Delivery Me thod Room Air Oxygen Flow Rate 10 Fraction of Inspir ed Oxygen Hydration adequate: Yes Nausea and vomiting: No Pain level: 3 Mental status: Baseline
[2022-01-17] MEDS: ketorolac 30 mg/mL INJ IVP (18:16)
[2022-01-17] MEDS: dextrose 5%-lactated ringers 1,000 ML 125 ML IV (18:16)
--- NOTE | 2022-01-17 20:58 | PC.NURSE ---
Patient was helped up to the chair in her room at this time with standby assistance from this nurse. She tolerated it well although she did report it was very painful. I offered her something for pain but she declined at this time.
[2022-01-18] MEDS: ketorolac 30 mg/mL INJ IVP ×2 (00:03→05:58)
[2022-01-18] MEDS: dextrose 5%-lactated ringers 1,000 ML 125 ML IV (02:18)
[2022-01-18 04:35] VITALS: BP 70/37; PULSE 87; RESP 18; TEMP 36.4; O2SAT 98
--- NOTE | 2022-01-18 04:36 | PC.NURSE ---
Patients blood pressure noted to be low at this time with a reading of 70/37. Her blood pressures have remained soft all day and night so far according to the chart. She is asymtomatic at this time. Her pulse rate is normal at 87. She denies feeling dizzy or light headed at this time. She has lactated ringers with 5% dextrose running at 125ml an hour.
--- NOTE | 2022-01-18 04:38 | PC.NURSE ---
Patients urine output was 50 ml she was instructed to increase her fluids by mouth and she verbalized understanding. She has not drank any water since supper. I gave her fresh water and ice at this time.
--- NOTE | 2022-01-18 04:39 | PC.NURSE ---
Patient was assisted by this nurse to walk two laps around her room at this time. During position change or ambulation she is in a great deal of pain that she rates 6/10. This nurse asked her if she wanted anything for pain at this time and she denies. Her next scheduled toradol is at 0600.
[2022-01-18 05:21] LABS: Mean Corpuscular HGB Conc 33.3 g/dL (30.0-36.0); Mean Corpuscular Volume 90.1 fl (81-99); Mean Platelet Volume 8.7 fL (7.4-10.4); Platelet Count 179 10^3/cmm (130-400); Red Blood Count 3.33 10^6/uL (4.1-5.3); Red Cell Distribution Width 12.8 % (12.1-15.1); White Blood Count 7.9 10^3/uL (4.0-10.0)
--- NOTE | 2022-01-18 06:11 | PC.NURSE ---
Patient was helped by this nurse to get out of bed and ambulate in the rees. She was able to make it approximately 200ft and then requested to turn around. She has a significant amount of pain on her left side when changing positions or ambulating. The further she walked though she seemed to be able to stand up straighter and not be in as much pain and the patient agreed with that. I offered her something additional for pain but she again denied. I asked her if there was a reason she did not want to take any medication for pain and she said that during her time with endometriosis she has taken everything for pain and nothing has helped. I instructed her to increase her fluid intake as well and she verbalized understanding.
[2022-01-18] MEDS: docusate sodium 100 mg Capsule PO (08:45)
[2022-01-18] MEDS: HYDROcodone-acetaminophen 5-325 mg Tablet PO (08:45)
[2022-01-18 08:48] VITALS: BP 95/61; PULSE 82; RESP 16; TEMP 37.2; O2SAT 97
[2022-01-18 10:39] VITALS: TEMP 36.7
--- NOTE | 2022-01-18 10:40 | PC.NURSE ---
Patient ambulated one lap in hallway. Tolerated well, Patient encouraged to walk more throughout the day.
--- NOTE | 2022-01-18 11:26 | P.DS_ITS ---
Discharge Providers PROPERTY SITE MANAGER Date of Admission: 01/17/22 14:16 Date of Discharge: 01/18/22 Attending Provider at Admission: Holland Carlin MD Attending Provider at Discharge: Holland Carlin MD Primary PROPERTY SITE MANAGER: Holland Carlin MD Primary Care Provider: Holland Carlin MD Reason for Visit Reason for Visit: endometriosis, unspecified Hospital Course Hospital Course Lashae 41-year-old female G0, P0 with a history of chronic pelvic pain and severe endometriosis post hysterectomy. Admitted for planned laparoscopic bilateral salpingo-oophorectomy. At the laparoscopy multiple adhesions were encountered in the pelvis and after lysis of adhesions the bilateral salpingo- oophorectomy was performed. Overnight postop observation was uneventful. She is afebrile and hemodynamically stable postoperative day 1. Adequate urine output. Ambulating without difficulty. Tolerating diet well. Counseled regarding pelvic rest for 6 weeks (no sex, no tampons, no vaginal douches). Return to the emergency room if any fever, increased bleeding or pain. Physical Exam Narrative: GA: Alert and oriented ?3. HEENT: WNL. Heart: Regular rate and rhythm. Lungs: Clear to auscultation bilaterally. Abdomen: Bowel sounds present, nontender, minimal tenderness, incision clean and dry, no redness, pain or edema. CYCLE MANAGER: No bleeding. Extremities: No edema, no cyanosis, no calves pain. Urinary Catheter Management: Rubio: Cath Placed During This Visit: yes Urinary Catheter Date of Insertion: 01/17/22 Urinary Catheter Time of Insertion: 10:58 History History History 0 Term 0 Miscarriages/Ectopic Living Children Discharge Data Studies Completed and Pending Pending at discharge Category Date Time Status Pathology: Surgical [PTH] Routine Pth 01/17/22 13:31 Received Laboratory Results WBC 7.9 10^3/uL (4.0-10.0) 01/18/22 05:10 RBC 3.33 10^6/uL (4.1-5.3) L 01/18/22 05:10 Hgb 10.0 g/dL (11.5-15.3) L 01/18/22 05:10 Hct 30.0 % (37.0-47.0) L 01/18/22 05:10 MCV 90.1 fl (81-99) 01/18/22 05:10 MCH 30.0 pg (28.0-34.0) 01/18/22 05:10 MCHC 33.3 g/dL (30.0-36.0) 01/18/22 05:10 RDW 12.8 % (12.1-15.1) 01/18/22 05:10 Plt Count 179 10^3/cmm (130-400) 01/18/22 05:10 MPV 8.7 fL (7.4-10.4) 01/18/22 05:10 Neut % (Auto) 41.1 % 01/15/22 13:18 Lymph % (Auto) 43.8 % 01/15/22 13:18 Ware % (Auto) 9.1 % 01/15/22 13:18 Eos % (Auto) 5.1 % 01/15/22 13:18 Baso % (Auto) 0.7 % 01/15/22 13:18 Neut # (Auto) 1.76 10^3/uL (1.8-7.7) L 01/15/22 13:18 Lymph # (Auto) 1.9 10^3/uL (0.8-4.8) 01/15/22 13:18 Ware # (Auto) 0.4 10^3/uL (0.2-0.9) 01/15/22 13:18 Eos # (Auto) 0.2 10^3/uL (0.0-0.8) 01/15/22 13:18 Baso # (Auto) 0.0 10^3/uL (0.0-0.1) 01/15/22 13:18 Nucleated RBC % (auto) 0 % 01/15/22 13:18 Nucleated RBCs # 0.0 /100WBC 01/15/22 13:18 Sodium 141 mmol/L (136-145) 01/15/22 13:18 Potassium 3.5 mmol/L (3.5-5.1) 01/15/22 13:18 Chloride 104 mmol/L (98-107) 01/15/22 13:18 Carbon Dioxide 25 mmol/L (22-29) 01/15/22 13:18 Anion Gap 15.5 (5-19) 01/15/22 13:18 BUN 12 mg/dL (6-20) 01/15/22 13:18 Creatinine 0.8 mg/dL (0.5-0.9) 01/15/22 13:18 GFR Calculation 79.9 mL/min (90-130) L 01/15/22 13:18 Glucose 109 mg/dL (65-115) 01/15/22 13:18 Calculated Osmolality 292 mOsm/kg (285-295) 01/15/22 13:18 Calcium 9.1 mg/dL (8.5-10.5) 01/15/22 13:18 Total Bilirubin 0.4 mg/dL (0.15-1.2) 01/15/22 13:18 AST 21 U/L (0-32) 01/15/22 13:18 ALT 33 U/L (0-33) 01/15/22 13:18 Alkaline Phosphatase 53 U/L (35-105) 01/15/22 13:18 Total Protein 7.1 g/dL (6.6-8.7) 01/15/22 13:18 Albumin 4.6 g/dL (3.5-5.2) 01/15/22 13:18 Globulin 2.5 g/dL (1.3-4.6) 01/15/22 13:18 Urine Color Yellow (Yellow) 01/15/22 Unknown Urine Appearance Clear (CLEAR) 01/15/22 Unknown Urine pH 5 (5-7) 01/15/22 Unknown Ur Specific [place] 1.020 (1.005-1.030) 01/15/22 Unknown Urine Protein Neg (Negative) 01/15/22 Unknown Urine Glucose (UA) Norm (Normal) 01/15/22 Unknown Urine Ketones 1+ (Negative) H 01/15/22 Unknown Urine Blood 2+ (Negative) H 01/15/22 Unknown Urine Nitrate Negative (Negative) 01/15/22 Unknown Urine Bilirubin Neg (Negative) 01/15/22 Unknown Urine Urobilinogen Norm mg/dL (Negative) 01/15/22 Unknown Ur Leukocyte Esterase Negative (Negative) 01/15/22 Unknown Urine RBC 0-4 /hpf (0-2) H 01/15/22 Unknown Urine WBC 0-4 /hpf (0-5) H 01/15/22 Unknown Ur Squamous Epith Cells 10-15 /hpf (0-5) H 01/15/22 Unknown Amorphous Sediment Not Reportable 01/15/22 Unknown Urine Bacteria 1+ /hpf (NONE) H 01/15/22 Unknown HIV 1&2 Ab & HIV 1 Ag Non-reactive (Non-Reactiv) 01/15/22 13:18 HIV 1&2 Antibody Non-reactive (Non-Reactiv) 01/15/22 13:18 Blood Type B Positive 01/15/22 13:18 Rho(D) Type Positive 01/15/22 13:18 Antibody Screen Negative 01/15/22 13:18 Vitals Last Vital Signs Temp 98.0 F 01/18/22 10:39 Pulse 82 01/18/22 08:48 Resp 16 01/18/22 08:48 BP 95/61 01/18/22 08:48 Pulse Ox 97 01/18/22 08:48 O2 Del Method 01/18/22 08:48 O2 Flow Rate 10 01/17/22 14:05 Discharge Plan Discharge Patient Disposition: Home Condition: Stable Prescriptions: New hydrocodone-acetaminophen 5-325 mg tablet 1 tab PO Q4H PRN (Reason: pain) Qty: 20 0RF acetaminophen 325 mg capsule 325 mg PO Q4H PRN (Reason: fever or pain) Qty: 60 0RF ferrous sulfate [Iron (ferrous sulfate)] 325 mg (65 mg iron) tablet 325 mg PO BID Qty: 60 0RF ibuprofen 800 mg tablet 800 mg PO TID PRN (Reason: pain) Qty: 60 0RF No Action No Known Home Medications Discharge Orders: Discharge Order (Routine); Ordered 01/18/22 Ordered By: Holland Carlin Referrals: Holland Carlin MD [Primary Care Provider] - 2 weeks Discharge Diet: Usual diet Discharge Activity: Limit activity as instructed Patient Instructions: Opioid Safety Activity Restrictions/Additional Instructions: 1. Please call [facility] on next working day to make your post-operative appointment in 2 weeks. 2. Please stay home until you come back to the clinic on first post-operative check up. 3. Please follow instructions on your medications CAREFULLY. 4. If you have abdominal incision, do not cover it unless dressing is necessary because of drainage. OK to shower, but avoid bath. Leave steri-strips until they fall off. If they are still on one week after surgery, you may remove them. 5. If you had vaginal surgery or vaginal repair, Dr. Carlin may instruct you to take SITZ bath. 6. Yellow, blood tinged odorous vaginal discharge is usually normal after hysterectomy or vaginal surgeries. 7. No sexual intercourse, tampons, or douches until you are completely released from the post-operative care. 8. Avoid constipation by eating right and maybe using some Metamucil or Milk of Magnesia. 9. All prescription refills are given during the working hours. Please do no wait till it runs out. Call the clinic at [phone] before your medication runs out. The clinic will get in touch with your doctor to prescribe medications if necessary. 10. Please remain within 40 mile radius from our hospital because emergencies do happen now and then during the post-operative period. 11. If you have stairs at home, take one step at a time slowly and minimize the number of trips. It helps to stay in one floor for the next few days. No lifting except what you can lift by one hand until you are released from the post-operative care. 12. Driving is discouraged until you are well healed. It may be 3-4 weeks before you feel strong enough to drive. You should be able to turn and look through the rear window without pain and you should be able to push the brake pedal very hard without pain before you drive. No fast rules, but SAFETY should be your primary concern. DO NOT drive if you are on sedating medications such as narcotics. 13. Call the clinic (during working hours) to make urgent appointment or go to the Emergency room, if any of the following occurs: i. Vaginal bleeding becomes heavy, more than a period. ii. Incision becomes red and sore, or drains pus. iii. Your temperature is over 100.4 or you have chill. iv. IV site becomes red and swollen (a little ``knot?? is usually OK) v. Persistent nausea and vomiting vi. Persistent constipation or diarrhea vii. Rash or allergic reaction to medications. Discharge Attestations PROPERTY SITE MANAGER Time Spent in Discharge Care*: greater than 30 min Coding Level of Care Code Acute Field Nurse Case Manager for Deangelo Quintero
[2022-01-18 12:30] VITALS: BP 102/61; PULSE 86; RESP 18; TEMP 36.9; O2SAT 97
[2022-01-18 12:55] VITALS: BP 102/61; PULSE 86; RESP 18; TEMP 36.9; O2SAT 97
== END 2022-01-18 12:52 | disposition home or self-care (01) ==
LOC: OBGYN 14:16
PROVIDERS: Admitting Provider Obstetrics & Gynecology; PCP Obstetrics & Gynecology; Visit Provider Obstetrics & Gynecology
PROC: (CPT 58661; principal; 2022-01-17 09:45)
DX: N80.9 Endometriosis, unspecified (principal); K66.0 Peritoneal adhesions (postprocedural) (postinfection)
CPT/HCPCS: 58661; 36415; 80053; 81001; 85025; 85027; 86850; 86900; 87806; 88305; G0378; J1100; J1170; J1200; J1885; J2250; J2405; J2704; J2710; J3010; J3490; J7030; Q9968

== ENCOUNTER → 2022-03-26 12:43 | Outpatient (BNVA) | payer BC, SELFPAY | PROVIDERS: PCP Obstetrics & Gynecology; Visit Provider Obstetrics & Gynecology | DX: G89.18 Other acute postprocedural pain (principal) | CPT/HCPCS: 76857 ==